=== PATIENT | male | born 1965 | race Caucasian/White ===

== ENCOUNTER 2016-11-20 22:10 | Inpatient (IN) | payer BC ==
[~2016-11-20] VITALS: Ht 175.3 cm; Wt 72.5 kg
[~2016-11-20 22:10] MED LIST: ADVIL200 MG PO; CYMBALTA60 MG PO; FENTANYL1 EAC5 TD; VALIUM10 MG PO
[2016-11-21 08:49] VITALS: BP 124/60
[2016-11-21 09:09] LABS: MCH 31.5 PG (29.0-34.0); MCHC 32.9 G/DL (30.0-36.0); MCV 95.9 FL (86-99); MEAN PLAT.VOLUME 10.9 uM^3 (9.0-12.4); PLATELET COUNT 214 K/uL (156-360); RBC DIS.WIDTH-CV 12.4 % (11.8-14.6); RBC DIS.WIDTH-SD 43.6 % (39-53); RED BLOOD COUNT 4.38 M/uL (4.00-5.50); WHITE BLOOD COUNT 6.9 K/uL (4.1-10.2)
[2016-11-21 09:11] LABS: ADD MIUA? NO; BILIRUBIN NEGATIVE; BLOOD NEGATIVE; COLOR YELLOW ((YELLOW)); GLUCOSE (STRIP) NEGATIVE; KETONES NEGATIVE; LEUKOCYTES NEGATIVE; NITRITE NEGATIVE; PROTEIN (STRIP) NEGATIVE; SPECIFIC GRAVITY 1.021 (1.000-1.030); UROBILINOGEN 0.2 MG/DL (0.2-1.0)
[2016-11-21 17:00] VITALS: BP 124/60
[2016-11-21 17:09] VITALS: BP 138/81
[2016-11-21 19:50] VITALS: BP 140/86
[2016-11-21 23:28] VITALS: BP 118/74
[2016-11-22 05:18] VITALS: BP 110/57
[2016-11-22] MEDS ORDERED: HYDROCODON-ACE1 EAC7 PO (08:04)
[2016-11-22] MEDS ORDERED: CYCLOBENZAPRINE10 MG PO (08:04)
[2016-11-22 08:07] VITALS: BP 123/54
== END 2016-11-22 10:35 | disposition home or self-care (01) | DRG 460 ==
LOC: ENRESERV 22:10 → 2SOUTH 11-21 08:30 → ENRESERV 11-21 09:56 → 2SOUTH 11-21 11:16 → ENRESERV 11-21 11:46 → 2SOUTH 11-21 14:35 → 3EAST 11-21 16:43
PROVIDERS: Neurological Surgery
DX: M51.16 Intervertebral disc disorders with radiculopathy, lumbar region (principal); M48.06 Spinal stenosis, lumbar region; M46.90 Unspecified inflammatory spondylopathy, site unspecified; Z98.1 Arthrodesis status
CPT/HCPCS: 72100; 76000; 81003; 85027; 95886; 95938; C1713; J0330; J0690; J1100; J1170; J2250; J2270; J2405; J2710; J3010; J3370; J3480; S0020

== ENCOUNTER 2017-08-01 18:53 | Observation (INO) | payer SELFPAY ==
[~2017-08-01] VITALS: Ht 175.3 cm; Wt 84.2 kg
[~2017-08-01 18:53] MED LIST changes: +CYCLOBENZAPRINE10 MG PO; +HYDROCODON-ACE1 EAC7 PO
[2017-08-01 19:33] LABS: BASOPHIL (%) 0.5 % (0-1); EOSINOPHIL (%) 3.6 % (0-5); EOSINOPHIL COUNT 0.2 K/uL (0-0.3); HEMOGLOBIN 13.4 G/DL (12.5-16.6); IMMATURE GRANULOCYTE (%) 0.2 % (0.0-0.7); LYMPHOCYTE (%) 29.9 % (15-42); LYMPHOCYTE COUNT 1.8 K/uL (1.0-2.8); MCH 31.5 PG (29.0-34.0); MCHC 34.4 G/DL (30.0-36.0); MCV 91.8 FL (86-99); MONOCYTE (%) 7.3 % (3-12); MONOCYTE COUNT 0.5 K/uL (0-0.8); NEUTROPHIL (%) 58.5 % (45-76); NEUTROPHIL COUNT 3.6 K/uL (1.8-6.4); PLATELET COUNT 197 K/uL (156-360); RBC DIS.WIDTH-CV 12.5 % (11.8-14.6); RBC DIS.WIDTH-SD 41.9 % (39-53); RED BLOOD COUNT 4.25 M/uL (4.00-5.50); WHITE BLOOD COUNT 6.2 K/uL (4.1-10.2)
[2017-08-01 19:46] LABS: ALBUMIN 4.3 g/dL (3.2-4.8)
[2017-08-01 19:47] LABS: CHLORIDE 103 mEq/L (99-109); SODIUM 139 mEq/L (136-147)
[2017-08-01 19:49] LABS: GLUCOSE 121 mg/dL (70-99); TOTAL PROTEIN 6.9 g/dL (6.4-8.3)
[2017-08-01 19:51] LABS: TOTAL BILIRUBIN 0.7 mg/dL (0.0-1.0)
[2017-08-01 19:52] LABS: ALKALINE PHOSPHATASE 71 IU/L (3-129); GFR ESTIMATE (CALCULATED) > 59 mL/min/ (58.99-99999)
[2017-08-01 19:54] LABS: AST (GOT) 22 IU/L (2-34); UREA NITROGEN (BUN) 20 mg/dL (9-23)
[2017-08-01 19:55] LABS: ALT (GPT) 16 IU/L (3-49); CREATINE KINASE 207 IU/L (1-294); TOTAL CK 207 IU/L (1-294)
[2017-08-01 20:02] LABS: TROP-I INTERPRETATION NEGATIVE; TROPONIN-I 0.02 ng/mL (0.0-0.30)
[2017-08-01 20:03] LABS: CK-MB 4.1 ng/mL (0.0-4.9)
[2017-08-01] MEDS ORDERED: SALINE NASAL SP45 ML BOTH NARES (21:36)
[2017-08-01] MEDS ORDERED: ALEVE220 MG PO (21:37)
[2017-08-01] MEDS ORDERED: MEN'S MULTI-VI1 EACH PO (21:38)
[2017-08-01] MEDS ORDERED: MELATIN3 MG PO (21:39)
[2017-08-02 00:03] VITALS: BP 115/68
[2017-08-02 02:32] LABS: HDL CHOLESTEROL 46 MG/DL (Desirable>=40); LDL CHOLESTEROL 87 mg/dL (Desirable<100); NON-HDL CHOLESTEROL 101 mg/dL (Desirable<160); TOTAL CHOLESTEROL 147 mg/dL (Desirable<200); TRIGLYCERIDES 70 MG/DL (Normal: <150)
[2017-08-02 03:06] LABS: TROP-I INTERPRETATION NEGATIVE; TROPONIN-I 0.03 ng/mL (0.0-0.30)
[2017-08-02 03:15] VITALS: BP 109/56
[2017-08-02 07:44] VITALS: BP 111/78
[2017-08-02 08:11] LABS: TROP-I INTERPRETATION NEGATIVE; TROPONIN-I 0.02 ng/mL (0.0-0.30)
[2017-08-02 09:56] VITALS: BP 122/72; BP 125/68; BP 136/72
[2017-08-02] MEDS ORDERED: ANTIVERT25 MG PO (10:09)
[2017-08-02] MEDS ORDERED: ZOFRAN4 MG PO (10:09)
[2017-08-02 10:54] LABS: HEMOGLOBIN A1c (GLYCOHEMOGLOB) 5.5 % (Below 5.7)
[2017-08-02 11:36] VITALS: BP 127/82
== END 2017-08-02 12:26 | disposition home or self-care (01) ==
LOC: EME 18:53 → 4SOUTH 22:50 → EDOF 22:50 → ENRESERV 22:52 → 4SOUTH 08-02
PROVIDERS: Emergency Medicine; Physician Assistant
DX: R42 Dizziness and giddiness (principal); R07.9 Chest pain, unspecified; R11.0 Nausea; M79.602 Pain in left arm; R51 Headache; Z98.1 Arthrodesis status; Z83.3 Family history of diabetes mellitus; Z82.5 Family history of asthma and other chronic lower respiratory diseases; Z82.49 Family history of ischemic heart disease and other diseases of the circulatory system; Z82.0 Family history of epilepsy and other diseases of the nervous system; Z82.3 Family history of stroke
CPT/HCPCS: 70450; 70496; 70498; 70551; 71046; 80053; 80061; 82550; 82553; 83036; 84484; 85025; 93005; 99281; 99285; G0378; J2405; J7030